=== PATIENT | female | born 1990 | race Asian ===

== ENCOUNTER 2018-07-26 16:33 | Inpatient (IN) | payer OTHER, MEDICAID ==
[2018-07-26] MEDS ORDERED: Lactated Ringers 1000 ML Bag* 1,000 ML IV ONE ×2 (16:58→20:48)
[2018-07-26] MEDS ORDERED: Buffered Lidocaine 1% SYRIN* 1 ML/SYRINGE INTRADERM ONE (16:58)
[2018-07-26] MEDS ORDERED: Oxytocin in LR* 20 UNITS/1,000 ML BAG IVPB SCH (17:00)
--- NOTE | 2018-07-26 17:07 | HP ---
General Information - Reason for Visit induction at 39 weeks - General Information Maternal Age: 28 Grav: 1 Para: 0 Estimated Due Date: 07/30/18 Determined By: LMP Gestational Age in Weeks/Days: 39 3/7 weeks Maternal Blood Type and Rh: O Positive - Results this Serology/RPR Result: Non-Reactive Rubella Result: Immune HBsAg Result: Negative HIV Result: Negative GBS Culture Result: Negative Past Medical History Delivery History: See Records Pertinent Past Medical History: See Records Pertinent Past Surgical History: See Records Pertinent Family History: See Records - Antepartal Records Antepartal Records: Reviewed, Uncomplicated Review of Systems Constitutional: Comfortable CV Complaint: No Respiratory: Shortness of Breath: No Gastrointestinal: No Nausea/Vomiting Genitourinary: No Dysuria, No Bleeding Musculoskeletal: No Complaint Neurological: No Headache Movement: Normal Exam RR 18 T98.5 BP 132/85 - Measurements Height: 5 ft 7 in Weight: 162 lb Body Mass Index (BMI): 25.3 Pre- Weight: 130 lb - Exam Breast: Breast Exam Deferred CVA: No CVA Tenderness Extremities: No Edema Heart: Normal Rhythm/Heart Sounds HEENT: No Significant Findings Lungs: Clear Bilaterally Rectal: Rectal Exam Deferred Reflexes: DTR 2+ Thyroid: No Thyromegaly - Abdominal Exam Abdomen Exam: Non-Tender - Ultrasound/Biophysical Profile Ultrasound Status: Not Done Targeted Exam Findings Cervical Exam: 3cm Effacement: 80% Station: 0 Presenting Part: Vertex Membrane Status: Intact EFM Findings - External Monitor Findings Baseline Heart Rate: 140 External Monitor Findings: Accelerations Present, No Pattern of Variable or Late Decelerations, Variability Moderate Contractions: Irregular Assessment/Plan - Assessment PT 28 yo G 1 P0 induction of labor - Plan Plan: Admit - Anticipate Vaginal Delivery
[2018-07-26] MEDS: Lactated Ringers 1000 ML Bag* 1,000 ML IV SCH ×2 (17:35→23:34)
[2018-07-26 17:52] LABS: ABS Basophils 0 10^3/ul (0-0.2); ABS Eosinophils 0.1 10^3/ul (0-0.6); ABS Lymphocytes 1.7 10^3/ul (1.0-4.8); ABS Monocytes 0.5 10^3/ul (0-0.8); ABS Neutrophils 6.4 10^3/ul (1.5-7.7); ABS Nucleated RBC 0 10^3/ul; Hematocrit 39 % (33-41); Hemoglobin 13.3 g/dL (12.0-16.0); Lymphocyte % 19.1 %; Mean Corpuscular HGB Conc 34 g/dL (31-36); Mean Corpuscular Hemoglobin 32 pg (27-31); Mean Corpuscular Volume 93 fL (80-97); Mean Platelet Volume 8.8 fL (7.4-10.4); Nucleated Red Blood Cells % 0.1; Platelet Count 183 10^3/uL (150-450); Red Blood Count 4.18 10^6 /uL (3.70-4.87); Red Cell Distribution Width 14 % (10.5-15); White Blood Count 8.7 10^3/uL (3.5-10.8)
[2018-07-26] MEDS ORDERED: OBEPIDURAL* 250 ML EPIDURAL ONE (20:22)
[2018-07-26] MEDS ORDERED: Sodium Citrate/Citric Acid* 15 ML UDC PO PRN (20:48)
[2018-07-26] MEDS ORDERED: Phenylephrine 40 MCG/ML SYRINGE IV PUSH PRN ×2 (20:48)
[2018-07-26] MEDS ORDERED: Lactated Ringers 1000 ML Bag* 1,000 ML IV SCH (21:00)
[2018-07-26] MEDS ORDERED: OBEPIDURAL* 250 ML EPIDURAL SCH (21:00)
[2018-07-27] MEDS ORDERED: Glycerin ADULT SUPP PR PRN (02:29)
[2018-07-27] MEDS ORDERED: Dibucaine 1% 28.35 GM TUBE PR PRN (02:29)
[2018-07-27] MEDS ORDERED: Witch Hazel PAD* JAR TOPICAL PRN (02:29)
[2018-07-27] MEDS ORDERED: Ibuprofen TAB* 600 MG PO PRN (02:29)
--- NOTE | 2018-07-27 02:32 | PROCNOTE ---
[facility] OB: Delivery Note - Delivery A Date of : 07/27/18 Time of : 02:10 Sex: Female Score 1 Minute: 9 Score 5 Minutes: 10 Gestational Age in Weeks and Days at Delivery: 39 Weeks and 4 Days Delivery Method: Spontaneous Vaginal Labor: Induced Did Patient attempt ?: N/A, No Previous Amniotic Fluid: Meconium Estimated Blood Loss: 300 Anesthesia/Analgesia: CEI for Labor, Other Delivered By: Cristy Carlton - Nursery Level of Nursery: Regular/Bedside - Perineum Perineal Injury: Perineal Laceration - repair of second degree laceration standard technique - Events Delivery Events of Note: Pitocin During Labor
[2018-07-27] MEDS ORDERED: Lactated Ringers 1000 ML Bag* 1,000 ML IV SCH (03:00)
[2018-07-27] MEDS ORDERED: Oxytocin in LR* 20 UNITS/1,000 ML BAG IVPB SCH (03:00)
[2018-07-27] MEDS ORDERED: Simethicone TAB* 80 MG TAB.CHEW PO SCH (08:30)
[2018-07-27] MEDS: Docusate CAP* 100 MG PO SCH ×3 (09:35→21:10)
[2018-07-27] MEDS: Acetaminophen TAB* 325 MG PO PRN ×2 (09:37→14:08)
[2018-07-28 07:31] LABS: ABS Basophils 0 10^3/ul (0-0.2); ABS Eosinophils 0.1 10^3/ul (0-0.6); ABS Lymphocytes 2.1 10^3/ul (1.0-4.8); ABS Monocytes 0.6 10^3/ul (0-0.8); ABS Neutrophils 8.7 10^3/ul (1.5-7.7); ABS Nucleated RBC 0 10^3/ul; Hematocrit 36 % (33-41); Mean Corpuscular HGB Conc 33 g/dL (31-36); Mean Corpuscular Hemoglobin 31 pg (27-31); Mean Corpuscular Volume 94 fL (80-97); Mean Platelet Volume 8.7 fL (7.4-10.4); Nucleated Red Blood Cells % 0; Platelet Count 144 10^3/uL (150-450); Red Blood Count 3.84 10^6 /uL (3.70-4.87); Red Cell Distribution Width 14 % (10.5-15); White Blood Count 11.6 10^3/uL (3.5-10.8)
[2018-07-28] MEDS ORDERED: Ferrous Gluconate TAB* 324 MG TAB PO SCH (09:00)
[2018-07-28] MEDS: Acetaminophen TAB* 325 MG PO PRN ×2 (09:53→18:40)
[2018-07-28] MEDS: Docusate CAP* 100 MG PO SCH ×3 (09:53→21:02)
[2018-07-29] MEDS: Docusate CAP* 100 MG PO SCH (07:45)
[2018-07-29 07:51] VITALS: BP 122/74
--- NOTE | 2018-07-29 15:50 | PTEDU ---
Patient Name: FABRICIO PAUL TARA PAULI selected video: Never Ever Shake a Baby to view on 07/29/2018 at 3:49:32 PM from [id number]
--- NOTE | 2018-07-29 16:02 | PTEDU ---
Patient Name: FABRICIO PAUL FABRICIO PAUL selected video: Follow Me Mum: [facility] [place] [facility] to view on 07/29/2018 a t 4:01:13 PM [email or web address]
== END 2018-07-29 16:33 | disposition home or self-care (01) | DRG 807 ==
LOC: MCHOBOUT 16:33 → MCHOB 17:11
PROVIDERS: ADMIT Obstetrics & Gynecology; ATTEND Obstetrics & Gynecology
PROC: 10907ZC Drainage of Amniotic Fluid, Therapeutic from Products of Conception, Via Natural or Artificial Opening (ICD-10-PCS; 2018-07-26)
PROC: 3E033VJ Introduction of Other Hormone into Peripheral Vein, Percutaneous Approach (ICD-10-PCS; 2018-07-26)
PROC: 4A1HXCZ Monitoring of Products of Conception, Cardiac Rate, External Approach (ICD-10-PCS; 2018-07-26)
PROC: 10E0XZZ Delivery of Products of Conception, External Approach (ICD-10-PCS; principal; 2018-07-27)
PROC: 0KQM0ZZ Repair Perineum Muscle, Open Approach (ICD-10-PCS; 2018-07-27)
DX: O77.0 Labor and delivery complicated by meconium in amniotic fluid (principal); Z37.0 Single live birth; O70.1 Second degree perineal laceration during delivery; Z3A.39 39 weeks gestation of pregnancy; Z88.0 Allergy status to penicillin
CPT/HCPCS: 36415; 85025; 86850; 86900; 86901; A9270-GY